=== PATIENT | female | born 1945 | race Caucasian/White ===

== ENCOUNTER 2016-09-16 10:25 | Emergency (ER) | payer OTHER ==
--- NOTE | 2016-09-16 10:42 | CPEKG ---
Heart Rate: 92 RR Interval: 652 P-R Interval: 184 QRSD Interval: 72 QT Interval: 336 QTC Interval: 416 P [place]: 57 QRS [place]: 67 T Wave [place]: 15 EKG Severity - NORMAL ECG - EKG Impression: SINUS RHYTHM Electronically Signed By: Facundo Kuo 16-Sep-2016 16:22:54
--- NOTE | 2016-09-16 10:50 | EDPHY ---
H & P Stated Complaint: States palpitaions earlier today with syncope Time Seen by Provider: 09/16/16 10:41 HPI/ROS: CHIEF COMPLAINT: Palpitations, syncope HISTORY OF PRESENT ILLNESS: The patient presents to the ED after an episode of palpitations. This was complicated by a brief syncopal episode. The patient did bump her head on a piece of furniture and has a small contusion to her forehead. She has no complaints of a significant headache. She is not anticoagulated. The patient reported symptoms of an irregular tachycardia following her episode today. While driving to the emergency department she reportedly had resolution of her palpitations. She is now entirely symptom- free. The patient does have a history of hospitalization for chest pain within the past year. She did have an angiogram which demonstrated no significant coronary artery disease. The patient was referred to Dr. Lou from Cardiology who recommended the patient consider a EP study for arrhythmias evaluation. She did declined that study. The patient denies any complaints of asymmetric calf pain or swelling. She denies any focal numbness or weakness. She denies additional complaints. REVIEW OF SYSTEMS: A comprehensive 10 point review of systems is otherwise negative aside from elements mentioned in the history of present illness. Source: Patient Exam Limitations: No limitations - Personal History Current Tetanus Diphtheria and Acellular Pertussis (TDAP): Yes - Medical/Surgical History Hx Asthma: No Hx Chronic Respiratory Disease: No Hx Diabetes: No Hx Cardiac Disease: Yes Hx Renal Disease: No Hx Cirrhosis: No Hx Alcoholism: No Hx HIV/AIDS: No Hx Splenectomy or Spleen Trauma: No Other PMH: chronic leukemia DECEMBER 2012. "something with my heart" (records at [facility]) - Social History Smoking Status: Never smoked - Physical Exam Exam: General Appearance: Alert, no distress Head: Normocephalic, atraumatic, mild tenderness over the left scalp without evidence of hematoma or significant ecchymosis Eyes: Pupils equal and round no pallor or injection ENT, Mouth: Mucous membranes moist Respiratory: There are no retractions, lungs are clear to auscultation Cardiovascular: Regular rate and rhythm Gastrointestinal: Abdomen is soft and nontender, no masses, bowel sounds normal Neurological: A&O, normal motor function, normal sensory exam, normal cranial nerves Skin: Warm and dry, no rashes Musculoskeletal: Neck is supple nontender Extremities: symmetrical, full range of motion Constitutional: Initial Vital Signs Temperature (C) 36.8 C 09/16/16 10:26 Heart Rate 106 H 09/16/16 10:26 Respiratory Rate 18 09/16/16 10:26 Blood Pressure 117/72 09/16/16 10:26 O2 Sat (%) 97 09/16/16 10:26 O2 Delivery Mode Room Air Allergies/Adverse Reactions: No Known Allergies Allergy (Verified 09/16/16 10:26) Home Medications: Medication Instructions Recorded Imatinib Mesylate [Gleevec 100 mg 400 mg PO DAILY 03/07/16 (*)] Aspirin 81 mg PO DAILY #0 tablet 03/08/16 Medical Decision Making - Diagnostics EKG Interpretation: EKG: Complete interpretation has been separately recorded in the [facility] archive. Summary impression: Sinus rhythm, rate 92, nonspecific T-wave changes noted in lead III. ED Course/Re-evaluation: The patient was placed on a physical optics teacher and had no evidence of an obvious arrhythmia. I reviewed her past medical records including the results of her angiogram from earlier this year. The patient was monitored in the ED without recurrent syncope, vital sign abnormality or the development of symptoms. At this point time I do feel the patient can safely be discharged home. I have recommended that she return to the emergency department for recurrent syncope, chest pain, shortness of breath or other concerns. I did review Dr. Lou as consult note in the [facility] system. The patient has a history of SVT of [id number] morphology. Given the absence of ongoing arrhythmia, given the normal neurologic examination and EKG findings today I do feel the patient can be discharged home with customary return precautions. The patient should schedule a follow-up visit with Dr. Lou for a recheck. The patient has been instructed not to drive or participate in dangerous activities until cleared to do so by Cardiology. In terms of the patient's minor head injury, she has no evidence of a closed head injury. She has no complaints of headache. She has no evidence of a concussion. I do not feel that she requires any CT imaging of her brain based upon her presentation. Differential Diagnosis: Differential diagnosis considered includes atrial fibrillation, SVT, metabolic abnormality, acute coronary syndrome, pericarditis - Data Points Laboratory Results: Laboratory Results 09/16/16 10:38 09/16/16 10:38 09/16/16 10:38 WBC 7.58 10^3/uL (3.80-9.50) RBC 3.95 L 10^6/uL (4.18-5.33) Hgb 13.1 g/dL (12.6-16.3) Hct 38.9 % (38.0-47.0) MCV 98.5 fL (81.5-99.8) MCH 33.2 pg (27.9-34.1) MCHC 33.7 g/dL (32.4-36.7) RDW 13.6 % (11.5-15.2) Plt Count 236 10^3/uL (150-400) MPV 10.7 fL (8.7-11.7) Neut % (Auto) 80.0 H % (39.3-74.2) Lymph % (Auto) 13.6 L % (15.0-45.0) Stearns % (Auto) 4.1 L % (4.5-13.0) Eos % (Auto) 1.7 % (0.6-7.6) Baso % (Auto) 0.5 % (0.3-1.7) Nucleat RBC Rel Count 0.0 % (0.0-0.2) Absolute Neuts (auto) 6.06 10^3/uL (1.70-6.50) Absolute Lymphs (auto) 1.03 10^3/uL (1.00-3.00) Absolute Monos (auto) 0.31 10^3/uL (0.30-0.80) Absolute Eos (auto) 0.13 10^3/uL (0.03-0.40) Absolute Basos (auto) 0.04 10^3/uL (0.02-0.10) Absolute Nucleated RBC 0.00 10^3/uL (0-0.01) Immature Gran % 0.1 % (0.0-1.1) Immature Gran # 0.01 10^3/uL (0.00-0.10) Sodium 141 mEq/L (134-144) Potassium 3.8 mEq/L (3.5-5.2) Chloride 105 mEq/L (97-110) Carbon Dioxide 23 mEq/l (22-31) Anion Gap 13 mEq/L (8-16) BUN 19 mg/dL (7-23) Creatinine 1.1 H mg/dL (0.6-1.0) Estimated GFR 49 Glucose 90 mg/dL (70-100) Calcium 8.9 mg/dL (8.5-10.4) Troponin I < 0.012 ng/mL (0-0.034) Departure - Departure Disposition: Home, Routine, Self-Care Clinical Impression: Palpitations, Syncope Condition: Good Instructions: Near Syncope (ED) Additional Instructions: 1. Please return to the ED for recurrent passing out, chest pain, shortness of breath or arrhythmia. 2. Please schedule a follow-up visit with Dr. Lou. 3. I recommend from driving or other dangerous activities until cleared to do so by Dr. Lou. Referrals: Owen Lou MD [Medical Doctor] - As per Instructions
[2016-09-16 11:15] LABS: % IMMATURE GRANULYOCYTES 0.1 % (0.0-1.1); ABSOLUTE IMMATURE GRANULOCYTES 0.01 10^3/uL (0.00-0.10); ADD DIFF? NO; ADD MORPH? NO; ADD SCAN? NO; ATYPICAL LYMPHOCYTE FLAG 0 (0-99); FRAGMENT RBC FLAG 0 (0-99); HEMATOCRIT 38.9 % (38.0-47.0); HEMOGLOBIN 13.1 g/dL (12.6-16.3); LEFT SHIFT FLG 0 (0-99); LIPEMIA HEMOLYSIS FLAG 80 (0-99); MEAN CELL HEMOGLOBIN 33.2 pg (27.9-34.1); MEAN CELL HEMOGLOBIN CONCENTR. 33.7 g/dL (32.4-36.7); MEAN CELL VOLUME 98.5 fL (81.5-99.8); MEAN PLATELET VOLUME 10.7 fL (8.7-11.7); PLATELET CLUMPS FLAG 0 (0-99); PLATELET COUNT 236 10^3/uL (150-400); RED BLOOD CELL COUNT 3.95 10^6/uL (4.18-5.33); RED CELL DISTRIBUTION WIDTH 13.6 % (11.5-15.2)
[2016-09-16 11:30] LABS: ANION GAP 13 mEq/L (8-16); CALCIUM 8.9 mg/dL (8.5-10.4); CARBON DIOXIDE 23 mEq/l (22-31); CHLORIDE 105 mEq/L (97-110); CREATININE 1.1 mg/dL (0.6-1.0); GLOMERULAR FILTRATION RATE 49; GLUCOSE 90 mg/dL (70-100); POTASSIUM 3.8 mEq/L (3.5-5.2); SODIUM 141 mEq/L (134-144)
[2016-09-16 11:41] LABS: TROPONIN I < 0.012 ng/mL (0-0.034)
--- NOTE | 2016-09-16 12:27 | CPEKG ---
Heart Rate: 166 RR Interval: 361 QRSD Interval: 68 QT Interval: 288 QTC Interval: 479 P [place]: 0 QRS [place]: 69 T Wave [place]: 7 EKG Severity - ABNORMAL ECG - EKG Impression: SUPRAVENTRICULAR TACHYCARDIA EKG Impression: ST DEPRESSION, PROBABLY RATE RELATED Electronically Signed By: Facundo Kuo 16-Sep-2016 16:22:54
[2016-09-16] MEDS ORDERED: ADENOSINE 6 MG/2 ML VIAL ONE (12:31)
[2016-09-16] MEDS ORDERED: NS 1,000 ML IV ONE (12:32)
[2016-09-16] MEDS ORDERED: ADENOSINE 6 MG/2 ML VIAL IVP ONE (12:32)
[2016-09-16] MEDS ORDERED: METOPROLOL SUCCINATE XR 25 MG TAB PO ONE (13:06)
[2016-09-16] MEDS ORDERED: METOPROLOL TARTRATE 25 MG TAB ONE (13:46)
[2016-09-16 13:52] VITALS: BP 112/73; PULSE 78; RESP 16; TEMP 98.8; O2SAT 98
== END 2016-09-16 13:45 | disposition home or self-care (01) ==
DX: R00.2 Palpitations (principal); R55 Syncope and collapse; Z79.82 Long term (current) use of aspirin
CPT/HCPCS: 93005; 96361; 96374; 99284; J0153

== ENCOUNTER 2016-11-23 06:51 | Observation (INO) | payer OTHER ==
[2016-11-23] MEDS ORDERED: MIDAZOLAM 2 MG/2 ML VIAL IVP ONE (06:53)
[2016-11-23] MEDS ORDERED: NS 1,000 ML IV ONE (06:53)
--- NOTE | 2016-11-23 07:14 | CPEKG ---
Heart Rate: 64 RR Interval: 938 P-R Interval: 152 QRSD Interval: 64 QT Interval: 408 QTC Interval: 421 P [place]: 55 QRS [place]: 48 T Wave [place]: 21 EKG Severity - BORDERLINE ECG - EKG Impression: SINUS RHYTHM EKG Impression: PROBABLE LEFT ATRIAL ABNORMALITY Electronically Signed By: Donnell Guerrier 23-Nov-2016 08:16:56
[2016-11-23 07:30] LABS: ADD DIFF? NO; ADD MORPH? NO; ADD SCAN? NO; ATYPICAL LYMPHOCYTE FLAG 20 (0-99); FRAGMENT RBC FLAG 0 (0-99); HEMATOCRIT 36.4 % (38.0-47.0); HEMOGLOBIN 12.5 g/dL (12.6-16.3); LEFT SHIFT FLG 0 (0-99); LIPEMIA HEMOLYSIS FLAG 90 (0-99); MEAN CELL HEMOGLOBIN 33.9 pg (27.9-34.1); MEAN CELL HEMOGLOBIN CONCENTR. 34.3 g/dL (32.4-36.7); MEAN CELL VOLUME 98.6 fL (81.5-99.8); PLATELET CLUMPS FLAG 0 (0-99); PLATELET COUNT 201 10^3/uL (150-400); RED BLOOD CELL COUNT 3.69 10^6/uL (4.18-5.33); RED CELL DISTRIBUTION WIDTH 13.6 % (11.5-15.2)
[2016-11-23 07:39] LABS: INR 1.02 (0.83-1.16); PROTIME(PATIENT) 13.3 SEC (12.0-15.0)
[2016-11-23 07:40] LABS: APTT 24.2 SEC (23.0-38.0)
[2016-11-23 08:00] LABS: ANION GAP 10 mEq/L (8-16); CALCIUM 9.4 mg/dL (8.5-10.4); CARBON DIOXIDE 25 mEq/l (22-31); CHLORIDE 107 mEq/L (97-110); GLOMERULAR FILTRATION RATE 55; GLUCOSE 84 mg/dL (70-100); MAGNESIUM 2.1 mg/dL (1.6-2.3); POTASSIUM 3.8 mEq/L (3.5-5.2); SODIUM 142 mEq/L (134-144)
[2016-11-23] MEDS ORDERED: DEXAMETHASONE 4 MG/ML VIAL ONE (08:22)
[2016-11-23] MEDS ORDERED: BUPIVACAINE 0.5% 30 ML SDV ONE (08:22)
[2016-11-23] MEDS ORDERED: ROCURONIUM 50 MG/5 ML VIAL ONE ×2 (08:22)
[2016-11-23] MEDS ORDERED: HEPARIN 10,000 UNIT/10 ML MDV ONE (08:22)
[2016-11-23] MEDS ORDERED: LIDOCAINE 1% 30 ML SDV ONE (08:22)
[2016-11-23] MEDS ORDERED: ISOPROTERENOL HCL 0.2 MG/ML 5ML AMP ONE (08:22)
[2016-11-23] MEDS ORDERED: ONDANSETRON 4 MG/2 ML VIAL ONE (08:22)
[2016-11-23] MEDS ORDERED: fentaNYL 100 MCG/2 ML INJ ONE ×2 (08:22→10:48)
[2016-11-23] MEDS ORDERED: PROPOFOL 200 MG/20 ML VIAL ONE (08:23)
[2016-11-23] MEDS ORDERED: MIDAZOLAM 2 MG/2 ML VIAL ONE (08:31)
[2016-11-23] MEDS ORDERED: epHEDrine SULFATE 10 MG/ML SYR ONE (09:10)
[2016-11-23] MEDS ORDERED: SUGAMMADEX SODIUM 200 MG/2 ML VIAL IVP ONE (10:38)
--- NOTE | 2016-11-23 11:08 | CPEKG ---
Heart Rate: 95 RR Interval: 632 P-R Interval: 188 QRSD Interval: 84 QT Interval: 380 QTC Interval: 478 P [place]: 54 QRS [place]: 64 T Wave [place]: -15 EKG Severity - ABNORMAL ECG - EKG Impression: SINUS RHYTHM EKG Impression: LEFT ATRIAL ABNORMALITY EKG Impression: BORDERLINE T ABNORMALITIES, INFERIOR LEADS Electronically Signed By: Donnell Guerrier 23-Nov-2016 14:20:41
[2016-11-23] MEDS ORDERED: ACETAMINOPHEN 325 MG TAB PO PRN (11:34)
[2016-11-23] MEDS ORDERED: ONDANSETRON 4 MG/2 ML VIAL IVP PRN (11:34)
--- NOTE | 2016-11-23 11:34 | EPPROC ---
Electrophysiology Procedure Note: ELECTROPHYSIOLOGIC STUDY AND CATHETER MEDIATED ABLATION OF SLOW/FAST AV KEV REENTRY TACHYCARDIA PROCEDURES PERFORMED: 10451-91 EP evaluation with RA/RV/LA pace/record, with arrhythmia induction 89610-84 EP evaluation with RA/RV pace record, insert/reposition catheter, with arrhythmia induction 93449 Intracardiac catheter ablation, SVT arrhythmogenic focus 42206 3D mapping Fluoroscopy INDICATION: SVT PROCEDURE: Catheters & Anesthesia: The patient arrived in the Electrophysiology Laboratory in the fasting state. The right clavicular region, right groin, and left groin area were prepped and draped in the usual sterile manner. Anesthesiologist Dr. Edmar Thorpe administered general anesthesia. Appropriate non-invasive blood pressure, pulse oximetry and end-tidal CO2 monitoring was established. All catheters were placed percutaneously using the modified Seldinger technique , and advanced into position under fluoroscopic guidance. One #6 [place] hexapolar non-deflectable electrode catheter was inserted into the right atrial appendage via the right femoral vein (2mm spacing; except the proximal ring which was 25cm from the tip used for unipolar recordings). One #7 [place] deflectable octapolar electrode catheter was advanced to the His-bundle position via the left femoral vein (2mm spacing). One #7 [place] deflectable catheter with 10 pairs of electrodes was placed via the left femoral vein into the coronary sinus. Heparin was given to keep ACT > _200_ s. Programmed stimulation was performed from the right atrium, right ventricle and coronary sinus (left atrium). Parahisian pacing demonstrated constant H-A interval with changing V-A intervals and stimulus-A intervals during capture and loss of capture of proximal RBB proving retrograde conduction over AV node. AVNRT was induced easily at baeline. Ventricular extrastimuli delivered during tachycardia without altering antegrade His bundle activation did not advance next atrial potential, indicating that the tachycardia was not utilizing an accessory pathway for retrograde conduction. VA interval was 20 ms. Post entrainment of the tachycardia from the ventricle, there was VAHV response. Mapping of the right atrium and coronary sinus during AVNRT identified earliest atrial activation above the tendon of Pancho at a level slightly posterior to the level of the His bundle, consistent with retrograde conduction over the fast AV kev pathway. A #8 [place] deflectable quadrapolar electrode catheter (2mm-5mm-2mm spacing) with 4 mm tip electrode and sensor for the 3D mapping Carto system was advanced to the right atrium. 3 D mapping of the inter-atrial septum and coronary sinus was performed and location of the AV node was marked. A SL2 sheath was used. RF applications were delivered to the region between the tricuspid annulus and the coronary sinus ostium, at the level of the upper edge of the coronary sinus ostium. Radiofrequency applications were also delivered along the roof of the proximal coronary sinus. Junctional rhythm occurred during all of the RF applications. AVNRT was still inducible. 6 mm cryocatheter was placed and lesions delivered to midseptal TA, roof of proximal CS and anteroapical edge of CS, this rendered AVNRT noninducible after first cryo application. Programmed stimulation was continued post ablation at baseline and during graded doses of isoproterenol upto 4mcg/min. Sustained AVNRT was not inducible. There were no echo beats. The catheters were removed. The long sheath was changed to a short 9 Fr sheath. The patient was transferred to the cardiovascular holding area in stable condition. Vascular access sheaths were removed in the holding area. There were no apparent complications. Results: A. Spontaneous Intervals: Pre ablation SCL 780 ms AH 60 ms HV 45 ms Post ablation SCL 720 ms AH 60 ms HV 45 ms B. Antegrade AV kev function (decremental pacing) Pre ablation FPERP 360 ms SPERP 350 ms WBB CL 330 ms Post ablation FPERP 390 ms WBB CL 380 ms C. Retrograde AV kev function (decremental pacing) Pre ablation FPERP 320 ms WBB CL 310 ms D. Arrhythmias: Sustained slow/fast AVNRT Cycle length 350 ms, AH interval 290 ms, OLSON interval 60 ms VA interval 20 ms CONCLUSIONS 1. 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 ( Slow/fast AVNRT). 2. Successful ablation of the slow AV kev pathway with elimination of 1:1 antegrade conduction over the slow AV kev pathway, all retrograde conduction over the slow AV kev pathway and the inducibility of AVNRT. 3. No complications. Patient Problems: Problems Problem Status Onset Chest pain Acute
[2016-11-23 12:10] LABS: ANION GAP 10 mEq/L (8-16); CALCIUM 8.3 mg/dL (8.5-10.4); CARBON DIOXIDE 20 mEq/l (22-31); CHLORIDE 111 mEq/L (97-110); CREATININE 0.9 mg/dL (0.6-1.0); GLOMERULAR FILTRATION RATE > 60; GLUCOSE 123 mg/dL (70-100); MAGNESIUM 1.8 mg/dL (1.6-2.3); POTASSIUM 3.5 mEq/L (3.5-5.2); SODIUM 141 mEq/L (134-144)
--- NOTE | 2016-11-23 16:14 | CPEKG ---
Heart Rate: 81 RR Interval: 741 P-R Interval: 160 QRSD Interval: 80 QT Interval: 380 QTC Interval: 441 P [place]: 66 QRS [place]: 61 T Wave [place]: 19 EKG Severity - BORDERLINE ECG - EKG Impression: SINUS RHYTHM EKG Impression: PROBABLE LEFT ATRIAL ABNORMALITY Electronically Signed By: Donnell Guerrier 25-Nov-2016 14:15:27
[2016-11-23] MEDS ORDERED: POLYETHYLENE GLYCOL 3350 17 GM PKT PO PRN (20:03)
[2016-11-23] MEDS ORDERED: MAGNESIUM HYDROXIDE 30 ML UDCUP PO PRN (20:06)
[2016-11-24 04:13] VITALS: TEMP 98.1; O2SAT 97
[2016-11-24 04:39] LABS: % IMMATURE GRANULYOCYTES 0.3 % (0.0-1.1); ABSOLUTE IMMATURE GRANULOCYTES 0.02 10^3/uL (0.00-0.10); ADD DIFF? NO; ADD MORPH? NO; ADD SCAN? NO; ATYPICAL LYMPHOCYTE FLAG 0 (0-99); FRAGMENT RBC FLAG 0 (0-99); HEMATOCRIT 30.9 % (38.0-47.0); HEMOGLOBIN 10.2 g/dL (12.6-16.3); LEFT SHIFT FLG 0 (0-99); LIPEMIA HEMOLYSIS FLAG 80 (0-99); MEAN CELL HEMOGLOBIN 32.9 pg (27.9-34.1); MEAN CELL VOLUME 99.7 fL (81.5-99.8); MEAN PLATELET VOLUME 10.9 fL (8.7-11.7); PLATELET CLUMPS FLAG 0 (0-99); PLATELET COUNT 174 10^3/uL (150-400); RED CELL DISTRIBUTION WIDTH 13.7 % (11.5-15.2)
[2016-11-24 04:48] LABS: INR 1.11 (0.83-1.16); PROTIME(PATIENT) 14.2 SEC (12.0-15.0)
[2016-11-24 05:11] LABS: ANION GAP 7 mEq/L (8-16); CARBON DIOXIDE 21 mEq/l (22-31); CHLORIDE 109 mEq/L (97-110); CREATININE 0.7 mg/dL (0.6-1.0); GLOMERULAR FILTRATION RATE > 60; GLUCOSE 102 mg/dL (70-100); POTASSIUM 4.4 mEq/L (3.5-5.2); SODIUM 137 mEq/L (134-144)
[2016-11-24 05:19] LABS: TROPONIN I 0.561 ng/mL (0-0.034)
[2016-11-24 05:21] LABS: CREATINE KINASE-MB FRACTION 3.94 ng/mL (0-3.19)
[2016-11-24 05:23] LABS: CK-MB INTERPRETATION NEGATIVE (NEGATIVE)
[2016-11-24 06:57] VITALS: BP 125/66; PULSE 59; RESP 16
[2016-11-24] MEDS ORDERED: traZODone 50 MG TAB PO PRN (08:16)
[2016-11-24] MEDS ORDERED: IMATINIB MESYLATE 100 MG TAB PO SCH (09:00)
[2016-11-24] MEDS ORDERED: ASPIRIN 81 MG CHEWABLE TAB PO SCH (09:00)
--- NOTE | 2016-11-24 09:03 | CPEKG ---
Heart Rate: 68 RR Interval: 882 P-R Interval: 164 QRSD Interval: 70 QT Interval: 384 QTC Interval: 409 P [place]: 53 QRS [place]: 61 T Wave [place]: 15 EKG Severity - NORMAL ECG - EKG Impression: SINUS RHYTHM Electronically Signed By: Donnell Guerrier 25-Nov-2016 14:14:42
--- NOTE | 2016-11-24 09:13 | ECHO ---
[id number] + + [address] : : [place] [address] : : [phone] + + Adult Echocardiographic Report + + :Name: ENEDINA GRECO CStudy Date: 11/24/2016 08:05 AM : : Hospital Admission Number: [id number] Loc ation: 202: :: 1945 Gender: Female Height: 60 in : :Age: 71 yrs Race: WH Weight: 120 lb : :Reason For Study: Eval LV Fx : : BSA: 1.5 me ters2 : :History: Post Ablation : + + MMode/2D Measurements \T\ Calculations IVSd: 1.4 cm LVIDd: 3.6 cm FS: 46.7 % Ao root diam: 2.9 cm LVPWd: 1.1 cm LVIDs: 1.9 cm EDV(Teich): 55.3 ml ACS: 1.8 cm ESV(Teich): 11.6 ml EF(Teich): 79.0 % Normal Measurement Values: + + :LVIDd (3.5-5.7cm) IVSd (0.6-1.1cm) LVPWd (0.6-1.1cm) Aortic Root (2.0-3.7cm)Left Atrium (1.5-4.0cm): :LV Vol(d) (76-115ml) LV Vol(s) (29-48ml) Ejec Fraction (50-65%)PV Akbar (0.6- 1.2m/s) TV Akbar (0.4-1.0m/s) : :MV E Akbar (0.8-1.0m/s)MV A Akbar (0.3-1.0m/s)LVOT Akbar (0.7-1.2m/s) Asc Ao Akbar ( 0.9-1.8m/s) : + + Doppler Measurements \T\ Calculations MV E max akbar: Ao V2 max: LV V1 max: PA V2 max: 111.6 cm/sec 145.2 cm/sec 127.3 cm/sec 96.4 cm/sec MV A max akbar: Ao max PG: LV V1 max PG: PA max P.9 cm/sec 8.4 mmHg 6.5 mmHg 3.7 mmHg MV E/A: 1.3 Left Ventricle The left ventricle is normal in size. There is mild concentric left ventricular hypertrophy. The left ventricular ejection fraction is normal. There is Doppler evidence for diastolic dysfunction. Ejection Fraction = 79%. The left ventricular wall motion is normal. Right Ventricle The right ventricle is normal in size and function. Atria The left atrial size is normal. Right atrial size is normal. Mitral Valve The mitral valve is normal in structure and function. There is no evidence of mitral valve prolapse. There is no mitral valve stenosis. There is trace to mild mitral regurgitation. Tricuspid Valve Normal tricuspid valve. There is trace tricuspid regurgitation. Right ventricular systolic pressure is normal. Aortic Valve The aortic valve is normal in structure and function. The aortic valve is trileaflet. There is no aortic stenosis. There is no aortic insufficiency. Pulmonic Valve The pulmonic valve is normal in structure and function. There is no pulmonic valvular regurgitation. Great Vessels The aortic root is normal size. Pericardium/Pleural There is no pericardial effusion. Conclusion A complete two-dimensional transthoracic echocardiogram was performed (2D, M-mode, Doppler and color flow Doppler). There is mild concentric left ventricular hypertrophy. The left ventricular ejection fraction is normal. There is Doppler evidence for diastolic dysfunction. Ejection Fraction = 79%. The left ventricular wall motion is normal. The right ventricle is normal in size and function. The mitral valve is normal in structure and function. There is trace to mild mitral regurgitation. There is trace tricuspid regurgitation. Right ventricular systolic pressure is normal. The aortic valve is normal in structure and function. There is no pericardial effusion. Final Reading Physician: Owen Lou MD electronically signed on 11/24/2016 09:11 AM Ordering Physician: Owen Lou Performed By: Moreno Chapa, CS
--- NOTE | 2016-11-24 14:28 | GDS ---
[f rep st] DISCHARGE SUMMARY DISCHARGE DIAGNOSES: 1. 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 2. History of leukemia. PROCEDURES PERFORMED: 1. 11/23/16, EP study with AV neville reentrant tachycardia identified, status post successful ablati on of the slow AV neville pathway with elimination of one-to-one antegrade conduction over pathway. 2. 11/24/16, echocardiogram which shows mild left ventricular hypertrophy, ejection fraction of 79% , trace to mild mitral regurgitation, trace tricuspid regurgitation. BRIEF HISTORY: Please see dictated H and P from our office for complete details. In brief, Ms. Violet Gary is a 71-year-old female with a long history of SVT that is infrequen t. However, she did have an episode of syncope associated with this recently. On 08/16/16, she pre sented to the emergency department and was found to be in SVT that appeared to be an AVNRT. She has been taking metoprolol, but despite this, would have recurrent episodes. She, therefore, proceeded to EP study and is status post ablation on this day. PHYSICAL EXAM: VITAL SIGNS: On day of discharge, blood pressure 125/66, heart rate 59, respiration s 16, O2 saturation 97% on room air, and temp of 98.1 degrees Fahrenheit. GENERAL: She is a pleasa nt female in no apparent distress. HEENT: Eyes are NAIF. EXTREMITIES: Bilateral groin sites with out bruit auscultated, minimal ecchymosis in groin site area. LABORATORY DATA: CBC on day of discharge, WBC 6.87, hemoglobin 10.2, hematocrit 30.9, platelet coun t 174. BMP with sodium 137, potassium 4.4, chloride 109, CO2 of 21, BUN 14, creatinine 0.7, glucose 102. Troponin 0.561. CK-MB of 3.94 consistent with recent ablation procedure. Telemetry shows si nus rhythm. 12-lead ECG personally interpreted reveals sinus rhythm. RESULTS PENDING: None. DIET: Per previous. ACTIVITY: Groin precautions were reviewed. DISCHARGE MEDICATIONS: Please see med reconciliation. She may continue on her home Gleevec, trazod one, and aspirin. FOLLOWUP: Follow up with Dr. Lou, as scheduled for 1 month's time. /[id number]/MODL
== END 2016-11-24 10:54 | disposition home or self-care (01) ==
LOC: FCATH 06:51 → F2W 11:34
PROVIDERS: ADMIT Internal Medicine Cardiovascular Disease; ATTEND Internal Medicine Cardiovascular Disease
PROC: 5A1213Z Performance of Cardiac Pacing, Intermittent (ICD-10-PCS; principal; 2016-11-23)
PROC: 02K83ZZ Map Conduction Mechanism, Percutaneous Approach (ICD-10-PCS; principal; 2016-11-23)
PROC: 4A023FZ Measurement of Cardiac Rhythm, Percutaneous Approach (ICD-10-PCS; principal; 2016-11-23)
PROC: 02583ZZ Destruction of Conduction Mechanism, Percutaneous Approach (ICD-10-PCS; principal; 2016-11-23)
DX: I47.1 Supraventricular tachycardia (principal); Z85.6 Personal history of leukemia
CPT/HCPCS: 93005; 93306; 93613; 93621; 93623; 93653; C1730; C1731; C1732; C1733; C1893; J1100; J1644; J2250; J2405; J2704; J3010

== ENCOUNTER → 2016-12-24 | Outpatient (CLI) | payer OTHER | LOC: BHFA 11:45 | PROVIDERS: ATTEND Internal Medicine Cardiovascular Disease | DX: I47.1 Supraventricular tachycardia (principal); C92.11 Chronic myeloid leukemia, BCR/ABL-positive, in remission ==

== ENCOUNTER → 2017-02-15 | Outpatient (CLI) | payer OTHER | LOC: FIMAGING 09:32 | PROVIDERS: ATTEND Internal Medicine | DX: Z12.31 Encounter for screening mammogram for malignant neoplasm of breast (principal); Z80.3 Family history of malignant neoplasm of breast | CPT/HCPCS: G0202 ==

== ENCOUNTER → 2017-05-18 | Outpatient (CLI) | payer OTHER | LOC: FIMAGING 09:35 | PROVIDERS: ATTEND Internal Medicine | DX: Z13.820 Encounter for screening for osteoporosis (principal); M81.0 Age-related osteoporosis without current pathological fracture; Z78.0 Asymptomatic menopausal state ==

== ENCOUNTER → 2018-02-22 | Outpatient (CLI) | payer OTHER | LOC: FIMAGING 14:05 | PROVIDERS: ATTEND Internal Medicine | DX: Z12.31 Encounter for screening mammogram for malignant neoplasm of breast (principal) ==

== ENCOUNTER → 2019-02-23 | Outpatient (CLI) | payer OTHER | LOC: FIMAGING 07:45 ==